=== PATIENT | female | born 1990 | race Caucasian/White ===

== ENCOUNTER 2017-03-15 07:55 | Emergency (ER) | payer BC, OTHER ==
[~2017-03-15] VITALS: Ht 170.2 cm; Wt 107.1 kg
[~2017-03-15 07:55] MED LIST: HYDR-3533 PO; IBUP-232 PO; ZOFR4TAB3 SL
[2017-03-15 07:59] VITALS: BP 130/59; PULSE 72; RESP 16; TEMP 97.5; O2SAT 100
--- NOTE | 2017-03-15 08:38 | PD ---
HPI Chief Complaint: GI Complaint Time Seen by Provider: 08:31 Travel History International Travel<30 days: No Contact w/Intl Traveler<30days: No Traveled to known affect area: No History of Present Illness HPI 26yo F with PMH of nephrolithiasis presents to the ED with c/o nausea for 1 week. Had vomiting last 3 days ago. Has been having lower abdominal cramping intermittently. Had one positive and one negative test at home. LMP 02/19/17. Denies any fever, cough, chest pain, sob, vaginal bleeding or discharge, dysuria, hematuria. Did not take anything for pain at home. PFSH Past Medical History Asthma: Yes (as child) Diminished Hearing: No Musculoskeletal: Yes (TENDONITIS) Integumentary: Yes Tetanus Vaccination: < 5 Years Influenza Vaccination: No ?: Unknown LMP: 02/19/17 : 1 Para: 1 Miscarriage: 0 : 0 Past Surgical History Section: Yes (x1) Social History Alcohol Use: No Tobacco Use: No Substance Use: No Allergies-Medications (Allergen,Severity, Reaction): Coded Allergies: No Known Allergies (Unverified Adverse Reaction, Unknown, 03/15/17) Reported Meds & Prescriptions Reported Meds & Active Scripts Active No Active Prescriptions or Reported Medications Review of Systems Except as stated in HPI: all other systems reviewed are Neg Physical Exam Narrative GENERAL: 26yo F not in distress. SKIN: Focused skin assessment warm/dry. HEAD: Atraumatic. Normocephalic. CARDIOVASCULAR: Regular rate and rhythm. No murmur appreciated. RESPIRATORY: No accessory muscle use. Clear to auscultation. Breath sounds equal bilaterally. GASTROINTESTINAL: Abdomen soft, +Mild suprapubic ttp. No RLQ ttp. No rebound tenderness or guarding. PELVIC: +Small amount of white vaginal discharge. No blood Cervix close. No CMT or adnexal tenderness bilaterally. BACK: No CVA tenderness bilaterally. MUSCULOSKELETAL: No obvious deformities. No clubbing. No cyanosis. No edema. NEUROLOGICAL: Awake and alert. No obvious cranial nerve deficits. Motor grossly within normal limits. Normal speech. PSYCHIATRIC: Appropriate mood and affect; insight and judgment normal. Data Data Last Documented VS Vital Signs Date Time Temp Pulse Resp B/P (MAP) Pulse Ox O2 Delivery O2 Flow Rate FiO2 03/15/17 08:06 16 03/15/17 07:59 97.5 72 130/59 (82) 100 Orders Orders Urinalysis - C+S If Indicated (03/15/17 08:12) Ed Urine Pregnancytest Poc (03/15/17 08:12) Complete Blood Count With Diff (03/15/17 08:35) Comprehensive Metabolic Panel (03/15/17 08:35) Acetaminophen (Tylenol) (03/15/17 08:45) Beta Hcg (Quant/Titer) (03/15/17 09:00) Gc And Chlamydia Pcr (03/15/17 10:21) Wet Prep Profile (03/15/17 10:21) Labs Laboratory Tests Test 03/15/17 09:00 03/15/17 10:31 White Blood Count 6.6 TH/MM3 Red Blood Count 4.89 MIL/MM3 Hemoglobin 13.1 GM/DL Hematocrit 40.8 % Mean Corpuscular Volume 83.4 FL Mean Corpuscular Hemoglobin 26.8 PG Mean Corpuscular Hemoglobin Concent 32.1 % Red Cell Distribution Width 13.8 % Platelet Count 182 TH/MM3 Mean Platelet Volume 8.5 FL Neutrophils (%) (Auto) 65.6 % Lymphocytes (%) (Auto) 27.4 % Monocytes (%) (Auto) 5.4 % Eosinophils (%) (Auto) 0.9 % Basophils (%) (Auto) 0.7 % Neutrophils # (Auto) 4.3 TH/MM3 Lymphocytes # (Auto) 1.8 TH/MM3 Monocytes # (Auto) 0.4 TH/MM3 Eosinophils # (Auto) 0.1 TH/MM3 Basophils # (Auto) 0.0 TH/MM3 CBC Comment DIFF FINAL Differential Comment Urine Collection Type CLEAN CATCH Urine Color YELLOW Urine Turbidity CLEAR Urine pH 6.5 Urine Specific [place] 1.007 Urine Protein NEG mg/dL Urine Glucose (UA) NEG mg/dL Urine Ketones NEG mg/dL Urine Occult Blood NEG Urine Nitrite NEG Urine Bilirubin NEG Urine Leukocyte Esterase NEG Urine WBC 0-2 /hpf Urine Squamous Epithelial Cells 0-5 /hpf Microscopic Urinalysis Comment CULT NOT INDICATED Urine Collection Time 09:00 Blood Urea Nitrogen 11 MG/DL Creatinine 0.63 MG/DL Random Glucose 93 MG/DL Total Protein 7.5 GM/DL Albumin 3.7 GM/DL Calcium Level 8.6 MG/DL Alkaline Phosphatase 56 U/L Aspartate Amino Transf (AST/SGOT) 13 U/L Alanine Aminotransferase (ALT/SGPT) 18 U/L Total Bilirubin 0.5 MG/DL Sodium Level 135 MEQ/L Potassium Level 4.2 MEQ/L Chloride Level 104 MEQ/L Carbon Dioxide Level 24.8 MEQ/L Anion Gap 6 MEQ/L Estimat Glomerular Filtration Rate 113 ML/MIN Human Chorionic Gonadotropin, Quant 89 MIU/ML Clue Cells (Wet Prep) NONE SEEN Vaginal Trichomonas (Wet Prep) NONE SEEN Vaginal Yeast (Wet Prep) NONE SEEN MDM Medical Decision Making Medical Screen Exam Complete: Yes Emergency Medical Condition: Yes Differential Diagnosis UTI vs. early vs. cystitis vs. bacterial vaginosis Narrative Course 26yo F with nausea for 1 week. Had intermittent lower abdominal cramping. Labs reviewed, no leukocytosis. bHCG is 89. UA negative. Pt given acetaminophen and pain has improved. Pt said the medication helped with her nausea as well and now she is eating and feeling better. No abdominal pain anymore. Wet prep negative. No vaginal bleeding. Return precautions given. Diagnosis Primary Impression: Early stage of Patient Instructions: General Instructions Departure Forms: Tests/Procedures Additional Instructions: Please follow up with OBGYN as outpatient. Return to the ED if symptoms worsen. Med/Other Pt SpecificInfo: Prescription(s) given Scripts Acetaminophen (Tylenol) 325 Mg Tab 650 MG PO Q6H Y for PAIN SCALE 1 TO 4, #20 TAB 0 Refills Prov: Anitha Nava 03/15/17 Disposition: 01 DISCHARGE HOME Condition: Stable Anitha Nava DO Mar 15, 2017 08:38
[2017-03-15] MEDS ORDERED: ACETAMINOPHEN 325 MG TAB PO ONE (08:45)
[2017-03-15 09:12] LABS: BLOOD, URINE NEG (NEG); GLUCOSE,URINE NEG (NEG); KETONE, URINE NEG (NEG); NITRITE,URINE NEG (NEG); PH, URINE 6.5 (5.0-8.5)
[2017-03-15 09:14] LABS: AUTOMATED NEUTROPHIL # 4.3 TH/MM3 (1.8-7.7); BASOPHIL % 0.7 % (0.0-2.0); EOSINOPHIL # 0.1 TH/MM3 (0-0.4); EOSINOPHIL % 0.9 % (0.0-4.0); HEMATOCRIT 40.8 % (35.0-46.0); LYMPH % 27.4 % (9.0-44.0); LYMPHOCYTE # 1.8 TH/MM3 (1.0-4.8); MEAN CELL VOLUME 83.4 FL (80.0-100.0); MEAN CORPUSCULAR HEMOGLOBIN 26.8 PG (27.0-34.0); MEAN CORPUSCULAR HGB CONC 32.1 % (32.0-36.0); MONO % 5.4 % (0.0-8.0); NEUT % 65.6 % (16.0-70.0); PLATELET COUNT 182 TH/MM3 (150-450); RED BLOOD COUNT 4.89 MIL/MM3 (4.00-5.30); RED CELL DISTRIBUTION WIDTH 13.8 % (11.6-17.2); WHITE BLOOD COUNT 6.6 TH/MM3 (4.0-11.0)
[2017-03-15 09:17] LABS: HEMO FLAGS DIFF FINAL
[2017-03-15 09:27] LABS: METHOD OF COLLECTION CLEAN CATCH; URINE COLOR YELLOW (YELLW/STRAW)
[2017-03-15 09:28] LABS: COMMENT (UR) CULT NOT INDICATED; CULTURE IF INDICATED CULT NOT INDICATED; SQUAMOUS EPITHELIAL CELL URINE 0-5 /hpf (0-5); WBC, URINE 0-2 /hpf (0-5)
[2017-03-15 09:52] LABS: BICARBONATE 24.8 MEQ/L (21.0-32.0); BLOOD UREA NITROGEN 11 MG/DL (7-18)
[2017-03-15 09:55] LABS: AST (GOT) 13 U/L (15-37); GLOMERULAR FILTRATION RATE 113 ML/MIN (>89)
[2017-03-15 09:57] LABS: ANION GAP 6 MEQ/L (5-15); CHLORIDE 104 MEQ/L (98-107); POTASSIUM 4.2 MEQ/L (3.5-5.1); SODIUM (NA) 135 MEQ/L (136-145)
[2017-03-15 09:58] LABS: ALKALINE PHOSPHATASE 56 U/L (45-117)
[2017-03-15 09:59] LABS: ALT (GPT) 18 U/L (10-53)
[2017-03-15 10:00] LABS: BETA HCG QUANT 89 MIU/ML (0-5)
[2017-03-15 10:06] LABS: TOTAL BILIRUBIN ADULT 0.5 MG/DL (0.2-1.0)
[2017-03-15] MEDS ORDERED: TYLE325T PO (11:19)
[2017-03-15 15:49] LABS: CHLAMYDIA PCR NOT DETECTED (NOT DETECT); NEISSERIA PCR NOT DETECTED (NOT DETECT)
== END 2017-03-15 11:35 | disposition home or self-care (01) ==
LOC: PHED 07:55
DX: O26.891 Other specified pregnancy related conditions, first trimester (principal); R11.2 Nausea with vomiting, unspecified; R10.30 Lower abdominal pain, unspecified; Z87.09 Personal history of other diseases of the respiratory system; Z87.39 Personal history of other diseases of the musculoskeletal system and connective tissue; Z87.2 Personal history of diseases of the skin and subcutaneous tissue; Z3A.00 Weeks of gestation of pregnancy not specified
CPT/HCPCS: 80053; 81001; 84702; 84703; 85025; 87210; 87491; 87591; 99283

== ENCOUNTER 2017-04-11 18:17 | Emergency (ER) | payer OTHER ==
[~2017-04-11] VITALS: Ht 170.2 cm; Wt 109.2 kg
[~2017-04-11 18:17] MED LIST changes: -HYDR-3533 PO; -IBUP-232 PO; +TYLE325T PO; -ZOFR4TAB3 SL
[2017-04-11 18:22] VITALS: BP 129/61; PULSE 82; RESP 18; TEMP 98.2; O2SAT 100
--- NOTE | 2017-04-11 18:39 | PD ---
HPI Chief Complaint: Abdominal Pain Time Seen by Provider: 18:28 Travel History International Travel<30 days: No Contact w/Intl Traveler<30days: No Traveled to known affect area: No History of Present Illness HPI 26-year-old female , approximately 8 weeks , here for evaluation of abdominal cramping and right ear pain. Patient reports intermittent abdominal cramping over the last month. She does not have an MODELING DIRECTOR appointment until the second week in April. She has had slight/whitish/non- foul-smelling vaginal discharge. She denies vaginal bleeding. Cramping is intermittent, lower abdominal, currently no pain. No urinary symptoms. States that today she began experiencing a pressure in her right ear that radiates to her right neck and throat. No fevers or chills. She has had a slight cough. No difficulty swallowing. She recently returned from a trip to [place] and flew home about 3 days ago. She has not yet had an ultrasound to confirm an IUP. On 03/15/17 the patient was seen in the emergency department and had a beta hCG of 89. PFSH Past Medical History Asthma: Yes (as child) Diminished Hearing: No Musculoskeletal: Yes (TENDONITIS) Integumentary: Yes ?: LMP: 02/19/17 : 1 Para: 1 Miscarriage: 0 : 0 Past Surgical History Section: Yes (x1) Social History Alcohol Use: No Tobacco Use: No Substance Use: No Allergies-Medications (Allergen,Severity, Reaction): Coded Allergies: No Known Allergies (Verified Adverse Reaction, Unknown, 04/11/17) Reported Meds & Prescriptions Reported Meds & Active Scripts Active Tylenol (Acetaminophen) 325 Mg Tab 650 Mg PO Q6H PRN Review of Systems Except as stated in HPI: all other systems reviewed are Neg Physical Exam Narrative GENERAL: Well-developed, well-nourished, comfortable, no apparent distress. SKIN: Focused skin assessment warm/dry. HEAD: Atraumatic. Normocephalic. EYES: Pupils equal and round. No scleral icterus. No injection or drainage. ENT: Mucous membranes pink and moist. Bilateral tympanic membranes and external auditory canals are normal. Normal pharynx without exudates. Uvula is midline. Normal phonation. NECK: Trachea midline. No JVD. No lymphadenopathy, swelling, or masses. CARDIOVASCULAR: Regular rate and rhythm. RESPIRATORY: No accessory muscle use. Clear to auscultation. Breath sounds equal bilaterally. GASTROINTESTINAL: Abdomen soft, nondistended. Mild suprapubic tenderness without peritoneal signs. Normal bowel sounds. MAC ARTIST: Exam performed in the presence of a female nurse. Normal external genitalia. Normal appearing cervix with closed os. Scant/whitish/non-foul- smelling vaginal discharge. No vaginal bleeding. MUSCULOSKELETAL: No obvious deformities. No clubbing. No cyanosis. No edema. NEUROLOGICAL: Awake and alert. No obvious cranial nerve deficits. Motor grossly within normal limits. Normal speech. PSYCHIATRIC: Appropriate mood and affect; insight and judgment normal. Data Data Last Documented VS Vital Signs Date Time Temp Pulse Resp B/P (MAP) Pulse Ox O2 Delivery O2 Flow Rate FiO2 04/11/17 20:30 98.2 84 16 120/58 (78) 100 Orders Orders Beta Hcg (Quant/Titer) (04/11/17 18:33) Complete Blood Count With Diff (04/11/17 18:33) Comprehensive Metabolic Panel (04/11/17 18:33) Gc And Chlamydia Pcr (04/11/17 18:33) Wet Prep Profile (04/11/17 18:33) Urinalysis - C+S If Indicated (04/11/17 18:33) Ed Urine Pregnancytest Poc (04/11/17 18:33) Group A Rapid Strep Screen (04/11/17 18:33) Influenzae A/B Antigen (04/11/17 18:33) Us Pelvis (Ques Pr/Ect)W Trans (04/11/17 ) Strep Culture (Group A) (04/11/17 19:06) Ed Discharge Order (04/11/17 19:50) Labs Laboratory Tests Test 04/11/17 18:47 04/11/17 19:24 White Blood Count 12.0 TH/MM3 Red Blood Count 4.65 MIL/MM3 Hemoglobin 12.6 GM/DL Hematocrit 38.9 % Mean Corpuscular Volume 83.7 FL Mean Corpuscular Hemoglobin 27.1 PG Mean Corpuscular Hemoglobin Concent 32.4 % Red Cell Distribution Width 13.7 % Platelet Count 186 TH/MM3 Mean Platelet Volume 8.7 FL Neutrophils (%) (Auto) 79.0 % Lymphocytes (%) (Auto) 16.5 % Monocytes (%) (Auto) 3.5 % Eosinophils (%) (Auto) 0.7 % Basophils (%) (Auto) 0.3 % Neutrophils # (Auto) 9.5 TH/MM3 Lymphocytes # (Auto) 2.0 TH/MM3 Monocytes # (Auto) 0.4 TH/MM3 Eosinophils # (Auto) 0.1 TH/MM3 Basophils # (Auto) 0.0 TH/MM3 CBC Comment AUTO DIFF Differential Comment AUTO DIFF CONFIRMED Platelet Estimate NORMAL Platelet Morphology Comment NORMAL Red Cell Morphology Comment NORMAL Urine Color YELLOW Urine Turbidity CLEAR Urine pH 6.5 Urine Specific [place] 1.016 Urine Protein NEG mg/dL Urine Glucose (UA) NEG mg/dL Urine Ketones NEG mg/dL Urine Occult Blood NEG Urine Nitrite NEG Urine Bilirubin NEG Urine Leukocyte Esterase NEG Urine Squamous Epithelial Cells 0-5 /hpf Microscopic Urinalysis Comment CULT NOT INDICATED Blood Urea Nitrogen 9 MG/DL Creatinine 0.61 MG/DL Random Glucose 84 MG/DL Total Protein 7.4 GM/DL Albumin 3.5 GM/DL Calcium Level 8.9 MG/DL Alkaline Phosphatase 55 U/L Aspartate Amino Transf (AST/SGOT) 12 U/L Alanine Aminotransferase (ALT/SGPT) 16 U/L Total Bilirubin 0.4 MG/DL Sodium Level 135 MEQ/L Potassium Level 3.9 MEQ/L Chloride Level 103 MEQ/L Carbon Dioxide Level 25.0 MEQ/L Anion Gap 7 MEQ/L Estimat Glomerular Filtration Rate 118 ML/MIN Human Chorionic Gonadotropin, Quant 66615 MIU/ML Clue Cells (Wet Prep) NONE SEEN Vaginal Trichomonas (Wet Prep) NONE SEEN Vaginal Yeast (Wet Prep) NONE SEEN MDM Medical Decision Making Medical Screen Exam Complete: Yes Emergency Medical Condition: Yes Differential Diagnosis , ectopic , UTI, cystitis, BV, Trichomonas, PID, strep pharyngitis, otitis media, eustachian tube dysfunction Narrative Course Vital signs show heart rate 82, blood pressure 129/61, pulse ox 100% on room air , oral temp of 98.2F. CBC is unremarkable. CMP is unremarkable. UA is completely within normal limits, not suggestive of UTI. Wet prep is negative for use, negative for clue cells, negative for Trichomonas. Influenza and group A strep are negative. Beta hCG is 54,047. Pelvic ultrasound shows an 8 week intrauterine gestation with a heart rate of 170 bpm. Patient was made aware of all findings. There are no peritoneal signs on exam. Not believe that there is an acute intra-abdominal process to warrant imaging at this time. Bilateral tympanic membranes are normal. Patient likely has eustachian tube dysfunction from recent travel by airplane to [place]. At this point she is stable for discharge home with outpatient follow-up with her MODELING DIRECTOR physician on April 18 as scheduled. She was advised on when to return to the emergency department. She verbalizes understanding and agreement with plan. Diagnosis Primary Impression: Intrauterine Referrals: Window Systems Administrator 1 week Additional Instructions: Follow-up with your MODELING DIRECTOR on April 18 as scheduled. Return to the emergency department for worsening symptoms or any other concerns. Disposition: DISCHARGE HOME Condition: Stable Bora Rich MD Apr 11, 2017 18:39
[2017-04-11 18:56] LABS: BILIRUBIN, URINE NEG (NEG); BLOOD, URINE NEG (NEG); GLUCOSE,URINE NEG (NEG); KETONE, URINE NEG (NEG); NITRITE,URINE NEG (NEG); PH, URINE 6.5 (5.0-8.5); URINE LEUKOCYTE ESTERASE NEG (NEG)
[2017-04-11 18:59] LABS: URINE COLOR YELLOW (YELLW/STRAW)
[2017-04-11 19:00] LABS: AUTOMATED NEUTROPHIL # 9.5 TH/MM3 (1.8-7.7); BASOPHIL % 0.3 % (0.0-2.0); EOSINOPHIL # 0.1 TH/MM3 (0-0.4); EOSINOPHIL % 0.7 % (0.0-4.0); HEMATOCRIT 38.9 % (35.0-46.0); HEMOGLOBIN 12.6 GM/DL (11.6-15.3); LYMPH % 16.5 % (9.0-44.0); MEAN CELL VOLUME 83.7 FL (80.0-100.0); MEAN CORPUSCULAR HEMOGLOBIN 27.1 PG (27.0-34.0); MEAN CORPUSCULAR HGB CONC 32.4 % (32.0-36.0); MEAN PLATELET VOLUME 8.7 FL (7.0-11.0); MONO % 3.5 % (0.0-8.0); MONOCYTE # 0.4 TH/MM3 (0-0.9); PLATELET COUNT 186 TH/MM3 (150-450); RED BLOOD COUNT 4.65 MIL/MM3 (4.00-5.30); RED CELL DISTRIBUTION WIDTH 13.7 % (11.6-17.2)
[2017-04-11 19:05] LABS: SQUAMOUS EPITHELIAL CELL URINE 0-5 /hpf (0-5)
[2017-04-11 19:07] LABS: CHLORIDE 103 MEQ/L (98-107); SODIUM (NA) 135 MEQ/L (136-145)
[2017-04-11 19:10] LABS: ALBUMIN 3.5 GM/DL (3.4-5.0); CALCIUM 8.9 MG/DL (8.5-10.1)
[2017-04-11 19:11] LABS: BLOOD UREA NITROGEN 9 MG/DL (7-18); GLUCOSE,RANDOM 84 MG/DL (74-106)
[2017-04-11 19:13] LABS: ALT (GPT) 16 U/L (10-53)
[2017-04-11 19:14] LABS: AST (GOT) 12 U/L (15-37); CREATININE 0.61 MG/DL (0.50-1.00); GLOMERULAR FILTRATION RATE 118 ML/MIN (>89)
[2017-04-11 19:15] LABS: TOTAL BILIRUBIN ADULT 0.4 MG/DL (0.2-1.0); TOTAL PROTEIN 7.4 GM/DL (6.4-8.2)
[2017-04-11 19:16] LABS: ALKALINE PHOSPHATASE 55 U/L (45-117)
--- NOTE | 2017-04-11 19:39 | RADRPT ---
EXAM DATE/TIME: 04/11/2017 18:42 [facility] COMPARISON: No previous studies available for comparison. INDICATIONS : Cramping. LAB(S): Beta-hC MEDICAL HISTORY : Asthma. Tendonitis. SURGICAL HISTORY : section. Left ankle surgery. ENCOUNTER: Initial ACUITY: 3 weeks PAIN SCORE: 0/10 LOCATION: pelvis MEASUREMENTS: UTERUS: 10.3 x x 6.9 cm ENDOMETRIAL STRIPE: 7 mm RIGHT OVARY: 4.2 x 2.4 x 2.5 cm LEFT OVARY: 3.0 x 1.7 x 1.9 cm FREE FLUID: Yes cul-de-sac CROWN RUMP LENGTH: 1.5 cm = 7 WKS 6 DAYS FHR: 170 BPM FINDINGS: UTERUS: Intrauterine gestation present with pole visualized. Estimated gestational age of 7 weeks 6 day s. cardiac activity is detected. RIGHT OVARY: Ovary contains no mass or significant cystic lesion. LEFT OVARY: Ovary contains no mass or significant cystic lesion. MISCELLANEOUS: Minimal CONCLUSION: 8 week intrauterine gestation Jay Florian MD on April 11, 2017 at 19:36 Board Certified Radiologist. This report was verified electronically.
[2017-04-11 20:30] VITALS: BP 120/58; TEMP 98.2
[2017-04-18] MEDS ORDERED: PREN1CAP PO (10:15)
== END 2017-04-11 21:01 | disposition home or self-care (01) ==
LOC: PHED 18:17
DX: O26.891 Other specified pregnancy related conditions, first trimester (principal); H92.01 Otalgia, right ear
CPT/HCPCS: 76700; 76817; 80053; 81001; 84702; 84703; 85025; 87081; 87210; 87491; 87591; 87804; 87880; 99284

== ENCOUNTER → 2017-06-26 | Outpatient (CLI) | payer MEDICAID, OTHER ==
[~2017-06-26] MED LIST changes: +PREN1CAP PO; -TYLE325T PO
== END ==
LOC: HPND 08:04
PROVIDERS: ATTEND Obstetrics & Gynecology
DX: O99.212 Obesity complicating pregnancy, second trimester (principal); E66.09 Other obesity due to excess calories; Z68.37 Body mass index [BMI] 37.0-37.9, adult; Z36.3 Encounter for antenatal screening for malformations
CPT/HCPCS: 76811

== ENCOUNTER → 2017-08-06 | Outpatient (CLI) | payer MEDICAID | LOC: HPND 07:58 | PROVIDERS: ATTEND Obstetrics & Gynecology | DX: O36.63X0 Maternal care for excessive fetal growth, third trimester, not applicable or unspecified (principal) | CPT/HCPCS: 76816 ==